=== PATIENT | female | born 1985 | race Caucasian/White ===

== ENCOUNTER 2017-01-13 13:32 | Emergency (ER) | payer MEDICAID ==
[2017-01-13] MEDS ORDERED: LORazepam 1 MG Tab PO ONE (14:20)
--- NOTE | 2017-01-13 14:38 | EDM.PDOCBH ---
ED HPI GENERAL MEDICAL PROBLEM - General Chief Complaint: Behavioral/Psych Stated Complaint: ANXIETY ISSUES Time Seen by Provider: 01/13/17 13:37 Source of Information: Reports: Patient History Limitations: Reports: No Limitations - History of Present Illness INITIAL COMMENTS - FREE TEXT/NARRATIVE: HISTORY AND PHYSICAL: History of present illness: Patient is a 31-year-old female who presents to the emergency room today with complaints of suicidal ideations. Has a past medical history of self-mutilation and depression. States she has been on Prozac and BuSpar for the past year to treat her depression. She currently sees at [facility]. Reports that her significant other recently broke up with her and she has had increased sadness, depression and thoughts of self-harm. She started cutting her hips with a razor blade last 01/10/2017. She states "I need to get my shit together have little boys at home that need me". She states if she does not receive help she plans to take all of her sleeping pills in an attempt to harm herself. Patient reports that she has had attempts to harm herself in the past, with self -mutilation. But she never was hospitalized or seen by a medical professional. She denies any visual or auditory hallucinations. She denies any drug or alcohol abuse. Review of systems: As per history of present illness and below otherwise all systems reviewed and negative. Past medical history: As per history of present illness and as reviewed below otherwise noncontributory. Surgical history: As per history of present illness and as reviewed below otherwise noncontributory. Social history: No reported history of drug or alcohol abuse. Family history: As per history of present illness and as reviewed below otherwise noncontributory. Physical exam: Gen.: Well-developed and well-nourished 31-year-old female. Appears nontoxic and in no acute distress. Is tearful during the interview. HEENT: Atraumatic, normocephalic, pupils reactive, negative for conjunctival pallor or scleral icterus, mucous membranes moist, throat clear, neck supple, nontender, trachea midline. Lungs: Clear to auscultation, breath sounds equal bilaterally, chest nontender. Previous easy and even. Heart: S1S2, regular, negative for clicks, rubs, or JVD. Abdomen: Soft, nondistended, nontender. Negative for masses or hepatosplenomegaly. Negative for costovertebral tenderness. Pelvis: Stable nontender. Genitourinary: Deferred. Rectal: Deferred. Skin: Superficial lacerations to the anterior/lateral hip bones bilaterally. Extremities: Atraumatic, has full range of motion, moves all extremities per self negative for cords or calf pain. Neurovascular unremarkable. Gait is steady and walks without difficulty. Neuro: Awake, alert, oriented. Cranial nerves II through XII unremarkable. Cerebellum unremarkable. Motor and sensory unremarkable throughout. Exam nonfocal. With the patient's complaint of wanting to harm herself I did tell her that she will need to go to [place] for a psych evaluation. Patient voices understanding and states that she is aware of needing to be transferred for further medical treatment. She states that she does have 3 boys at home which she is able to have a family member watch. Patient does appear anxious and is tearful during our interview. Will give patient 1 mg of Ativan to help alleviate some of her anxiety. A 72 hour hold/committal was filled out by me. Pedraza- Dr. Mccabe, mental health provider at [facility] in [place], consulted on this case. He has agreed to accept this patient as inpatient for mental health hold. Patient will be transferred via ground EMS. This case has also been reviewed with Dr. Harrison , emergency department physician. This will be in ED to ED transfer and then admitted to mental health. Patient is aware of transfer and is agreeable. The 72 hour hold has been filled out. He shouldn't is requesting "something from a headache", Tylenol has been given. Prior to transfer, the patient is alert and oriented, vital signs are stable, no current complaints. Diagnostics: CBC, CMPUA, urine drug screen, urine , TSH, salicylate, acetaminophen, Therapeutics: Ativan 1 mg by mouth, 650 Tylenol by mouth Impression: Suicidal ideations Plan: Wound transferred to [place]. Dr. Chaudhry has accepted to keep this patient as inpatient. The 72 hour emergency hold has been filled out. Definitive disposition and diagnosis as appropriate pending reevaluation and review of above. Headache Pain Score (Numeric/FACES): 10 - Related Data Allergies Allergy/AdvReac Type Severity Reaction Status Date / Time amoxicillin Allergy Hives Verified 01/13/17 14:04 Home Meds: Home Meds FLUoxetine [PROzac] 20 mg PO DAILY 01/13/17 [History] busPIRone HCl [Buspirone HCl] 60 mg PO BID 01/13/17 [History] Past Medical History HEENT History: Reports: None Cardiovascular History: Reports: None Respiratory History: Reports: None Gastrointestinal History: Reports: None Genitourinary History: Reports: None [employer] History: Reports: Musculoskeletal History: Reports: None Neurological History: Reports: None Psychiatric History: Reports: Anxiety, Depression Endocrine/Metabolic History: Reports: None Hematologic History: Reports: None Immunologic History: Reports: None Oncologic (Cancer) History: Reports: None Dermatologic History: Reports: None - Past Surgical History Head Surgeries/Procedures: Reports: None HEENT Surgical History: Reports: Tonsillectomy Cardiovascular Surgical History: Reports: None Respiratory Surgical History: Reports: None GI Surgical History: Reports: None Female Surgical History: Reports: None Endocrine Surgical History: Reports: None Neurological Surgical History: Reports: None Musculoskeletal Surgical History: Reports: None Oncologic Surgical History: Reports: None Dermatological Surgical History: Reports: None Social & Family History - Family History Family Medical History: Noncontributory - Tobacco Use Smoking Status *Q: Never Smoker - Caffeine Use Caffeine Use: Reports: Coffee - Recreational Drug Use Recreational Drug Use: No ED ROS GENERAL - Review of Systems Review Of Systems: ROS reveals no pertinent complaints other than HPI. ED EXAM, BEHAVIORAL HEALTH - Physical Exam Exam: See Below (See dictation) COURSE, BEHAVIORAL HEALTH COMP - Course Vital Signs: Last Vital Signs Temp 98.5 F 01/13/17 14:05 Pulse 81 01/13/17 15:04 Resp 18 01/13/17 15:04 BP 175/104 H 01/13/17 15:04 Pulse Ox 98 01/13/17 15:04 Orders, Labs, Meds: Laboratory Tests 01/13/17 01/13/17 01/13/17 Range/Units 14:28 14:28 14:58 WBC 8.22 (4.0-11.0) K/uL RBC 5.17 (4.30-5.90) M/uL Hgb 14.9 (12.0-16.0) g/dL Hct 43.5 (36.0-46.0) % MCV 84.1 (80.0-98.0) fL MCH 28.8 (27.0-32.0) pg MCHC 34.3 (31.0-37.0) g/dL RDW Std Deviation 37.9 (28.0-62.0) fl RDW Coeff of Neo 13 (11.0-15.0) % Plt Count 328 (150-400) K/uL MPV 10.00 (7.40-12.00) fL Neut % (Auto) 74.8 (48.0-80.0) % Lymph % (Auto) 20.1 (16.0-40.0) % [place] % (Auto) 4.9 (0.0-15.0) % Eos % (Auto) 0.0 (0.0-7.0) % Baso % (Auto) 0.2 (0.0-1.5) % Neut # (Auto) 6.2 H (1.4-5.7) K/uL Lymph # (Auto) 1.7 (0.6-2.4) K/uL [place] # (Auto) 0.4 (0.0-0.8) K/uL Eos # (Auto) 0.0 (0.0-0.7) K/uL Baso # (Auto) 0.0 (0.0-0.1) K/uL Nucleated RBC % 0.0 /100WBC Nucleated RBCs # 0 K/uL Sodium 141 (136-146) mmol/L Potassium 3.1 L (3.5-5.1) mmol/L Chloride 106 (98-110) mmol/L Carbon Dioxide 24 (21-31) mmol/L BUN 15 (6.0-23.0) mg/dL Creatinine 0.9 (0.6-1.5) mg/dL Est Cr Clr Drug Dosing 79.64 mL/min Estimated GFR (MDRD) > 60.0 ml/min Glucose 104 (60-110) mg/dL Calcium 9.2 (8.8-10.8) mg/dL Total Bilirubin 2.4 H (0.1-1.5) mg/dL AST 14 (5-40) IU/L ALT 16 (8-54) IU/L Alkaline Phosphatase 81 (40-150) Total Protein 8.1 H (6.0-8.0) g/dL Albumin 4.8 (3.5-5.0) g/dL Globulin 3.3 (2.0-3.5) g/dL Albumin/Globulin Ratio 1.5 TSH 3rd Generation 1.17 (0.47-5.0) uIU/mL Urine Color Urine Appearance Urine pH (5.0-8.0) Ur Specific [place] (1.001-1.035) Urine Protein (NEGATIVE) mg/dL Urine Glucose (UA) (NEGATIVE) mg/dL Urine Ketones (NEGATIVE) mg/dL Urine Occult Blood (NEGATIVE) Urine Nitrite (NEGATIVE) Urine Bilirubin (NEGATIVE) Urine Ictotest Urine Urobilinogen (<2.0) EU/dL Ur Leukocyte Esterase (NEGATIVE) Urine RBC (0-2/HPF) Urine WBC (0-5/HPF) Ur Epithelial Cells (NONE-FEW) Urine Bacteria (NEGATIVE) Urine Mucus (NONE-MOD) Urine HCG, Qual (NEGATIVE) Salicylates < 5.0 (0-20) mg/dL Urine Opiates Screen NEGATIVE (NEGATIVE) Ur Oxycodone Screen NEGATIVE (NEGATIVE) Urine Methadone Screen NEGATIVE (NEGATIVE) Acetaminophen < 3.0 ug/mL Ur Barbiturates Screen NEGATIVE (NEGATIVE) Ur Phencyclidine Scrn NEGATIVE (NEGATIVE) Ur Amphetamine Screen NEGATIVE (NEGATIVE) U Methamphetamines Scrn NEGATIVE (NEGATIVE) U Benzodiazepines Scrn NEGATIVE (NEGATIVE) U Cocaine Metab Screen NEGATIVE (NEGATIVE) U Marijuana (THC) Screen NEGATIVE (NEGATIVE) Ethyl Alcohol < 10.0 mg/dL 01/13/17 01/13/17 Range/Units 14:58 14:58 WBC (4.0-11.0) K/uL RBC (4.30-5.90) M/uL Hgb (12.0-16.0) g/dL Hct (36.0-46.0) % MCV (80.0-98.0) fL MCH (27.0-32.0) pg MCHC (31.0-37.0) g/dL RDW Std Deviation (28.0-62.0) fl RDW Coeff of Neo (11.0-15.0) % Plt Count (150-400) K/uL MPV (7.40-12.00) fL Neut % (Auto) (48.0-80.0) % Lymph % (Auto) (16.0-40.0) % [place] % (Auto) (0.0-15.0) % Eos % (Auto) (0.0-7.0) % Baso % (Auto) (0.0-1.5) % Neut # (Auto) (1.4-5.7) K/uL Lymph # (Auto) (0.6-2.4) K/uL [place] # (Auto) (0.0-0.8) K/uL Eos # (Auto) (0.0-0.7) K/uL Baso # (Auto) (0.0-0.1) K/uL Nucleated RBC % /100WBC Nucleated RBCs # K/uL Sodium (136-146) mmol/L Potassium (3.5-5.1) mmol/L Chloride (98-110) mmol/L Carbon Dioxide (21-31) mmol/L BUN (6.0-23.0) mg/dL Creatinine (0.6-1.5) mg/dL Est Cr Clr Drug Dosing mL/min Estimated GFR (MDRD) ml/min Glucose (60-110) mg/dL Calcium (8.8-10.8) mg/dL Total Bilirubin (0.1-1.5) mg/dL AST (5-40) IU/L ALT (8-54) IU/L Alkaline Phosphatase (40-150) Total Protein (6.0-8.0) g/dL Albumin (3.5-5.0) g/dL Globulin (2.0-3.5) g/dL Albumin/Globulin Ratio TSH 3rd Generation (0.47-5.0) uIU/mL Urine Color YELLOW Urine Appearance CLOUDY Urine pH 6.0 (5.0-8.0) Ur Specific [place] 1.020 (1.001-1.035) Urine Protein TRACE (NEGATIVE) mg/dL Urine Glucose (UA) NEGATIVE (NEGATIVE) mg/dL Urine Ketones 40 H (NEGATIVE) mg/dL Urine Occult Blood LARGE H (NEGATIVE) Urine Nitrite NEGATIVE (NEGATIVE) Urine Bilirubin SMALL H (NEGATIVE) Urine Ictotest NEGATIVE Urine Urobilinogen 0.2 (<2.0) EU/dL Ur Leukocyte Esterase NEGATIVE (NEGATIVE) Urine RBC 0-1 (0-2/HPF) Urine WBC 1-2 (0-5/HPF) Ur Epithelial Cells MODERATE (NONE-FEW) Urine Bacteria FEW (NEGATIVE) Urine Mucus LIGHT (NONE-MOD) Urine HCG, Qual NEGATIVE (NEGATIVE) Salicylates (0-20) mg/dL Urine Opiates Screen (NEGATIVE) Ur Oxycodone Screen (NEGATIVE) Urine Methadone Screen (NEGATIVE) Acetaminophen ug/mL Ur Barbiturates Screen (NEGATIVE) Ur Phencyclidine Scrn (NEGATIVE) Ur Amphetamine Screen (NEGATIVE) U Methamphetamines Scrn (NEGATIVE) U Benzodiazepines Scrn (NEGATIVE) U Cocaine Metab Screen (NEGATIVE) U Marijuana (THC) Screen (NEGATIVE) Ethyl Alcohol mg/dL Medications Discontinued Medications Generic Name Dose Route Start Last Admin Trade Name Freq PRN Reason Stop Dose Admin Lorazepam 1 mg 01/13/17 14:20 01/13/17 14:27 Ativan PO 01/13/17 14:21 1 mg ONETIME ONE Administration Departure - Departure Time of Disposition: 16:12 Disposition: DC/Tfer to Other 70 Clinical Impression: Suicidal ideation, Self-mutilation - Discharge Information Referrals: PCP,None [Primary Care Provider] - Forms: ED Department Discharge
[2017-01-13 15:23] LABS: CHLORIDE,CL 106 mmol/L (98-110); SODIUM,NA 141 mmol/L (136-146)
[2017-01-13 15:50] LABS: ACETAMINOPHEN < 3.0 ug/mL
[2017-01-13] MEDS ORDERED: Acetaminophen 325 MG Tab PO ONE (16:29)
== END 2017-01-13 16:40 | disposition other institution (70) ==
LOC: MW.ED 13:32
DX: S71.012A Laceration without foreign body, left hip, initial encounter (principal); S71.011A Laceration without foreign body, right hip, initial encounter; Z88.1 Allergy status to other antibiotic agents; Z79.899 Other long term (current) drug therapy; X78.8XXA Intentional self-harm by other sharp object, initial encounter
CPT/HCPCS: 36415; 80053; 80305; 81001; 81025; 84443; 85025; 99285; A9270; G0480; 99283

== ENCOUNTER 2017-02-04 12:51 | Emergency (ER) | payer MEDICAID ==
[2017-02-04 14:12] LABS: CHLORIDE,CL 107 mmol/L (98-110); SODIUM,NA 141 mmol/L (136-146)
--- NOTE | 2017-02-04 14:36 | EDM.PDOC ---
ED HPI GENERAL MEDICAL PROBLEM - General Chief Complaint: [employer] Problem Stated Complaint: PT BEEN BLEEDING FOR 2WKS Time Seen by Provider: 02/04/17 14:31 - History of Present Illness INITIAL COMMENTS - FREE TEXT/NARRATIVE: HISTORY AND PHYSICAL: History of present illness: Patient's 31-year-old white female presents with a concern of vaginal bleeding over the last several weeks she denies any significant chance of she' s had some mild cramping with this this is unusual for her. She's had no dizziness shortness of breath or other complaints. Review of systems: As per history of present illness and below otherwise all systems reviewed and negative. Past medical history: As per history of present illness and as reviewed below otherwise noncontributory. Surgical history: As per history of present illness and as reviewed below otherwise noncontributory. Social history: No reported history of drug or alcohol abuse. Family history: As per history of present illness and as reviewed below otherwise noncontributory. Physical exam: HEENT: Atraumatic, normocephalic, pupils reactive, negative for conjunctival pallor or scleral icterus, mucous membranes moist, throat clear, neck supple, nontender, trachea midline. Lungs: Clear to auscultation, breath sounds equal bilaterally, chest nontender. Heart: S1S2, regular, negative for clicks, rubs, or JVD. Abdomen: Soft, nondistended, nontender. Negative for masses or hepatosplenomegaly. Negative for costovertebral tenderness. Pelvis: Stable nontender. Genitourinary: Deferred. Rectal: Deferred. Extremities: Atraumatic, negative for cords or calf pain. Neurovascular unremarkable. Neuro: Awake, alert, oriented. Cranial nerves II through XII unremarkable. Cerebellum unremarkable. Motor and sensory unremarkable throughout. Exam nonfocal. Diagnostics: CBC PT/INR hCG Therapeutics: None Impression: #1 menometrorrhagia Definitive disposition and diagnosis as appropriate pending reevaluation and review of above. lower abdomen Pain Score (Numeric/FACES): 6 - Related Data Allergies Allergy/AdvReac Type Severity Reaction Status Date / Time amoxicillin Allergy Hives Verified 01/13/17 14:04 Sulfa (Sulfonamide Allergy Hives Verified 02/04/17 13:25 Antibiotics) Home Meds: Home Meds FLUoxetine [PROzac] 20 mg PO DAILY 01/13/17 [History] busPIRone HCl [Buspirone HCl] 60 mg PO BID 01/13/17 [History] QUEtiapine [SEROquel] 100 mg PO DAILY 02/04/17 [History] Past Medical History HEENT History: Reports: None Cardiovascular History: Reports: None Respiratory History: Reports: None Gastrointestinal History: Reports: None Genitourinary History: Reports: None [employer] History: Reports: Musculoskeletal History: Reports: None Neurological History: Reports: None Psychiatric History: Reports: Anxiety, Depression Endocrine/Metabolic History: Reports: None Hematologic History: Reports: None Immunologic History: Reports: None Oncologic (Cancer) History: Reports: None Dermatologic History: Reports: None - Past Surgical History Head Surgeries/Procedures: Reports: None HEENT Surgical History: Reports: Tonsillectomy Cardiovascular Surgical History: Reports: None Respiratory Surgical History: Reports: None GI Surgical History: Reports: None Female Surgical History: Reports: None Endocrine Surgical History: Reports: None Neurological Surgical History: Reports: None Musculoskeletal Surgical History: Reports: None Oncologic Surgical History: Reports: None Dermatological Surgical History: Reports: None Social & Family History - Family History Family Medical History: Noncontributory Other Dermatologic Family History: lupus - Tobacco Use Smoking Status *Q: Never Smoker Second Hand Smoke Exposure: No - Caffeine Use Caffeine Use: Reports: Soda - Recreational Drug Use Recreational Drug Use: No ED ROS GENERAL - Review of Systems Review Of Systems: ROS reveals no pertinent complaints other than HPI. ED EXAM, GENERAL - Physical Exam Exam: See Below (See dictation) Course - Vital Signs Last Recorded V/S: Last Vital Signs Temp 36.7 C 02/04/17 13:21 Pulse 76 02/04/17 13:21 Resp 18 02/04/17 13:21 BP 156/85 H 02/04/17 13:21 Pulse Ox 99 02/04/17 13:21 - Orders/Labs/Meds Orders: Active Orders 24 hr Category Date Time Status UA W/MICROSCOPIC [URIN] Stat Lab 02/04/17 13:55 Received Labs: Laboratory Tests 02/04/17 02/04/17 02/04/17 Range/Units 13:41 13:41 13:41 WBC 7.65 (4.0-11.0) K/uL RBC 4.50 (4.30-5.90) M/uL Hgb 12.9 (12.0-16.0) g/dL Hct 38.2 (36.0-46.0) % MCV 84.9 (80.0-98.0) fL MCH 28.7 (27.0-32.0) pg MCHC 33.8 (31.0-37.0) g/dL RDW Std Deviation 38.0 (28.0-62.0) fl RDW Coeff of Neo 13 (11.0-15.0) % Plt Count 263 (150-400) K/uL MPV 9.10 (7.40-12.00) fL Neut % (Auto) 70.2 (48.0-80.0) % Lymph % (Auto) 24.3 (16.0-40.0) % [place]a % (Auto) 4.4 (0.0-15.0) % Eos % (Auto) 0.8 (0.0-7.0) % Baso % (Auto) 0.3 (0.0-1.5) % Neut # (Auto) 5.4 (1.4-5.7) K/uL Lymph # (Auto) 1.9 (0.6-2.4) K/uL Lea # (Auto) 0.3 (0.0-0.8) K/uL Eos # (Auto) 0.1 (0.0-0.7) K/uL Baso # (Auto) 0.0 (0.0-0.1) K/uL Nucleated RBC % 0.0 /100WBC Nucleated RBCs # 0 K/uL Sodium 141 (136-146) mmol/L Potassium 3.8 (3.5-5.1) mmol/L Chloride 107 (98-110) mmol/L Carbon Dioxide 26 (21-31) mmol/L BUN 11 (6.0-23.0) mg/dL Creatinine 0.9 (0.6-1.5) mg/dL Est Cr Clr Drug Dosing 79.64 mL/min Estimated GFR (MDRD) > 60.0 ml/min Glucose 88 (60-110) mg/dL Calcium 9.2 (8.8-10.8) mg/dL Total Bilirubin 1.1 (0.1-1.5) mg/dL AST 14 (5-40) IU/L ALT 15 (8-54) IU/L Alkaline Phosphatase 68 (40-150) Total Protein 7.1 (6.0-8.0) g/dL Albumin 4.3 (3.5-5.0) g/dL Globulin 2.8 (2.0-3.5) g/dL Albumin/Globulin Ratio 1.5 (1.3-2.8) Urine HCG, Qual (NEGATIVE) Blood Type O POSITIVE 02/04/17 Range/Units 13:55 WBC (4.0-11.0) K/uL RBC (4.30-5.90) M/uL Hgb (12.0-16.0) g/dL Hct (36.0-46.0) % MCV (80.0-98.0) fL MCH (27.0-32.0) pg MCHC (31.0-37.0) g/dL RDW Std Deviation (28.0-62.0) fl RDW Coeff of Neo (11.0-15.0) % Plt Count (150-400) K/uL MPV (7.40-12.00) fL Neut % (Auto) (48.0-80.0) % Lymph % (Auto) (16.0-40.0) % Le[place] % (Auto) (0.0-15.0) % Eos % (Auto) (0.0-7.0) % Baso % (Auto) (0.0-1.5) % Neut # (Auto) (1.4-5.7) K/uL Lymph # (Auto) (0.6-2.4) K/uL Lea # (Auto) (0.0-0.8) K/uL Eos # (Auto) (0.0-0.7) K/uL Baso # (Auto) (0.0-0.1) K/uL Nucleated RBC % /100WBC Nucleated RBCs # K/uL Sodium (136-146) mmol/L Potassium (3.5-5.1) mmol/L Chloride (98-110) mmol/L Carbon Dioxide (21-31) mmol/L BUN (6.0-23.0) mg/dL Creatinine (0.6-1.5) mg/dL Est Cr Clr Drug Dosing mL/min Estimated GFR (MDRD) ml/min Glucose (60-110) mg/dL Calcium (8.8-10.8) mg/dL Total Bilirubin (0.1-1.5) mg/dL AST (5-40) IU/L ALT (8-54) IU/L Alkaline Phosphatase (40-150) Total Protein (6.0-8.0) g/dL Albumin (3.5-5.0) g/dL Globulin (2.0-3.5) g/dL Albumin/Globulin Ratio (1.3-2.8) Urine HCG, Qual POSITIVE (NEGATIVE) Blood Type Departure - Departure Time of Disposition: 14:36 Disposition: Home, Self-Care 01 Condition: Good Clinical Impression: Menometrorrhagia - Discharge Information Referrals: Baldev Cheatham MD [Primary Care Provider] - Additional Instructions: The following information is given to patients seen in the emergency department who are being discharged to home. This information is to outline your options for follow-up care. We provide all patients seen in our emergency department with a follow-up referral. The need for follow-up, as well as the timing and circumstances, are variable depending upon the specifics of your emergency department visit. If you don't have a primary care physician on staff, we will provide you with a referral. We always advise you to contact your personal physician following an emergency department visit to inform them of the circumstance of the visit and for follow-up with them and/or the need for any referrals to a consulting specialist. The emergency department will also refer you to a specialist when appropriate. This referral assures that you have the opportunity for followup care with a specialist. All of these measure are taken in an effort to provide you with optimal care, which includes your followup. Under all circumstances we always encourage you to contact your private physician who remains a resource for coordinating your care. When calling for followup care, please make the office aware that this follow-up is from your recent emergency room visit. If for any reason you are refused follow-up, please contact the [facility] emergency department at and asked to speak to the emergency department charge nurse. [facility] [address] [place] [id number] Follow-up private medical doctor and [employer] the above as discussed call to schedule appointment return as needed as discussed
--- NOTE | 2017-02-05 10:29 | US ---
EXAM DATE: 02/04/17 PATIENT'S AGE: 31 Patient: SARAHI ESTEVEZ Facility: [place], [place] Site . Site : 1985 Study: US OB Pelvis [id number] 3:55:08 PM Ordering Physician: Dorothy Espinoza Final Report: INDICATION: Abdominal pain. Vaginal bleeding. Positive test. TECHNIQUE: Ultrasound pelvis transvaginal for better assessment or to better visualize the endometrium. Real-time sonographic images with spectral and color Doppler imaging of the ovaries were obtained. COMPARISON: None. FINDINGS: Uterus is 8.5 x 4.7 x 4.7 cm. There is a rounded slightly heterogeneous hyperechoic focus with apparent peripheral flow in the left lower uterine segment. This measures up to 2.7 cm. The endometrial stripe is 11 mm. No evidence of endometrial mass or fluid. No evidence of normal living intrauterine . Right ovary is 3.7 x 3.9 x 2.7 cm and is within normal limits. Normal-appearing color Doppler flow in the right ovary. The left ovary is not discretely identified. Left adnexal region as imaged is unremarkable. There is a small amount of pelvic free fluid. IMPRESSION: No evidence of normal living intrauterine . Rounded slightly heterogeneous hyperechoic focus with apparent peripheral flow in the left lower uterine segment, of uncertain significance. This may be of no significance. However, given history of positive test, an intramural or interstitial type ectopic would be difficult to entirely exclude. Continued attention to this on clinical, imaging and beta HCG followup recommended as necessary. Nonvisualization of the left ovary. Small amount of pelvic free fluid. Dictated by Jermaine Montero MD @ 02/04/2017 5:02:00 PM Dictated by: Jermaine Montero MD @ 02/04/2017 17:02:47 (Electronic Signature) Report Signed by Proxy. DENICE
== END 2017-02-04 17:38 | disposition home or self-care (01) ==
LOC: MW.ED 12:51
DX: O20.8 Other hemorrhage in early pregnancy (principal); Z88.1 Allergy status to other antibiotic agents; Z88.2 Allergy status to sulfonamides; Z79.899 Other long term (current) drug therapy
CPT/HCPCS: 36415; 76801; 76801-26; 80053; 81001; 81025; 84702; 85025; 85610; 86900; 86901; 99283; 99284-25

== ENCOUNTER 2017-02-10 00:29 | Observation (INO) | payer MEDICAID ==
[2017-02-10] MEDS ORDERED: Sodium Chloride 0.9% 1,000 ML IV ONE (00:34)
--- NOTE | 2017-02-10 00:50 | EDM.PDOC ---
ED HPI GENERAL MEDICAL PROBLEM - General Chief Complaint: TARGET DEVELOPER Problem Stated Complaint: THINKS OVARY RUPTURED Time Seen by Provider: 02/10/17 00:29 - History of Present Illness INITIAL COMMENTS - FREE TEXT/NARRATIVE: HISTORY AND PHYSICAL: History of present illness: Patient 31-year-old female who was seen on 1226 with a positive test and mild abdominal cramping and vaginal bleeding was discharged home for repeat quantitative beta and follow-up her initial quantitative beta was 520 48 hour repeat was 576 that's 04 February and 06 February respectively she presents now with acute right-sided pain vaginal bleeding. She denies fever chills nausea vomiting or other complaints Review of systems: As per history of present illness and below otherwise all systems reviewed and negative. Past medical history: As per history of present illness and as reviewed below otherwise noncontributory. Surgical history: As per history of present illness and as reviewed below otherwise noncontributory. Social history: No reported history of drug or alcohol abuse. Family history: As per history of present illness and as reviewed below otherwise noncontributory. Physical exam: HEENT: Atraumatic, normocephalic, pupils reactive, negative for conjunctival pallor or scleral icterus, mucous membranes moist, throat clear, neck supple, nontender, trachea midline. Lungs: Clear to auscultation, breath sounds equal bilaterally, chest nontender. Heart: S1S2, regular, negative for clicks, rubs, or JVD. Abdomen: Tender with guarding greatest in the right lower quadrant. Negative for masses or hepatosplenomegaly. Negative for costovertebral tenderness. Pelvis: Stable nontender. Genitourinary: Deferred. Rectal: Deferred. Extremities: Atraumatic, negative for cords or calf pain. Neurovascular unremarkable. Neuro: Awake, alert, oriented. Cranial nerves II through XII unremarkable. Cerebellum unremarkable. Motor and sensory unremarkable throughout. Exam nonfocal. Diagnostics: CBC CMP type and screen pelvic ultrasound UA urine drug screen Therapeutics: Normal saline 1 L bolus Impression: #1 acute right-sided abdominal pain rule out ectopic ASSOCIATE QUALITY ENGINEER on-call Dr Brenner notified of above findings request notification after ultrasound and lab work back. Definitive disposition and diagnosis as appropriate pending reevaluation and review of above. abdomen Pain Score (Numeric/FACES): 10 - Related Data Allergies Allergy/AdvReac Type Severity Reaction Status Date / Time amoxicillin Allergy Hives Verified 02/10/17 00:42 Sulfa (Sulfonamide Allergy Hives Verified 02/10/17 00:42 Antibiotics) Home Meds: Home Meds FLUoxetine [PROzac] 20 mg PO DAILY 01/13/17 [History] busPIRone HCl [Buspirone HCl] 60 mg PO BID 01/13/17 [History] QUEtiapine [SEROquel] 100 mg PO DAILY 02/04/17 [History] Past Medical History HEENT History: Reports: None Cardiovascular History: Reports: None Respiratory History: Reports: None Gastrointestinal History: Reports: None Genitourinary History: Reports: None TARGET DEVELOPER History: Reports: Musculoskeletal History: Reports: None Neurological History: Reports: None Psychiatric History: Reports: Anxiety, Depression Endocrine/Metabolic History: Reports: None Hematologic History: Reports: None Immunologic History: Reports: None Oncologic (Cancer) History: Reports: None Dermatologic History: Reports: None - Past Surgical History Head Surgeries/Procedures: Reports: None HEENT Surgical History: Reports: Tonsillectomy Cardiovascular Surgical History: Reports: None Respiratory Surgical History: Reports: None GI Surgical History: Reports: None Female Surgical History: Reports: None Endocrine Surgical History: Reports: None Neurological Surgical History: Reports: None Musculoskeletal Surgical History: Reports: None Oncologic Surgical History: Reports: None Dermatological Surgical History: Reports: None Social & Family History - Family History Family Medical History: Noncontributory Other Dermatologic Family History: lupus - Tobacco Use Smoking Status *Q: Never Smoker Second Hand Smoke Exposure: No - Caffeine Use Caffeine Use: Reports: Soda - Recreational Drug Use Recreational Drug Use: No ED ROS GENERAL - Review of Systems Review Of Systems: ROS reveals no pertinent complaints other than HPI. ED EXAM, GENERAL - Physical Exam Exam: See Below Course - Vital Signs Text/Narrative:: Ultrasound results and labs reviewed with Dr. Brenner who requests admission for observation patient interval examination has improved slightly there certainly no worsening I discussed admission with patient for close observation and reevaluation by TARGET DEVELOPER patient remains afebrile and will be admitted as 22 arousals with diagnosis of acute right lower quadrant pain etiology to be determined rule out ectopic Last Recorded V/S: Last Vital Signs Temp 36.3 C 02/10/17 00:29 Pulse 115 H 02/10/17 00:29 Resp 20 02/10/17 00:29 BP 178/114 H 02/10/17 00:29 Pulse Ox 100 02/10/17 00:29 - Orders/Labs/Meds Orders: Active Orders 24 hr Category Date Time Status Admission Status [Patient Status] [ADT] Stat ADT 02/10/17 02:23 Active OB 1st Tri Sgl 1st Gest [US] Stat Exams 02/10/17 00:41 Taken TYPE AND SCREEN [BBK] Stat Lab 02/10/17 01:32 Received UA W/MICROSCOPIC [URIN] Stat Lab 02/10/17 02:08 Results Labs: Laboratory Tests 02/10/17 02/10/17 02/10/17 Range/Units 00:40 00:40 00:47 WBC 17.80 H (4.0-11.0) K/uL RBC 4.34 (4.30-5.90) M/uL Hgb 12.7 (12.0-16.0) g/dL Hct 36.6 (36.0-46.0) % MCV 84.3 (80.0-98.0) fL MCH 29.3 (27.0-32.0) pg MCHC 34.7 (31.0-37.0) g/dL RDW Std Deviation 38.6 (28.0-62.0) fl RDW Coeff of Neo 13 (11.0-15.0) % Plt Count 302 (150-400) K/uL MPV 9.40 (7.40-12.00) fL Neut % (Auto) 77.0 (48.0-80.0) % Lymph % (Auto) 18.3 (16.0-40.0) % [place] % (Auto) 4.0 (0.0-15.0) % Eos % (Auto) 0.6 (0.0-7.0) % Baso % (Auto) 0.1 (0.0-1.5) % Neut # (Auto) 13.7 H (1.4-5.7) K/uL Lymph # (Auto) 3.3 H (0.6-2.4) K/uL [place] # (Auto) 0.7 (0.0-0.8) K/uL Eos # (Auto) 0.1 (0.0-0.7) K/uL Baso # (Auto) 0.0 (0.0-0.1) K/uL Nucleated RBC % 0.0 /100WBC Nucleated RBCs # 0 K/uL Sodium 139 (136-146) mmol/L Potassium 3.4 L (3.5-5.1) mmol/L Chloride 106 (98-110) mmol/L Carbon Dioxide 23 (21-31) mmol/L BUN 11 (6.0-23.0) mg/dL Creatinine 0.9 (0.6-1.5) mg/dL Est Cr Clr Drug Dosing 79.64 mL/min Estimated GFR (MDRD) > 60.0 ml/min Glucose 116 H (60-110) mg/dL Calcium 8.6 L (8.8-10.8) mg/dL Total Bilirubin 0.4 (0.1-1.5) mg/dL AST 13 (5-40) IU/L ALT 15 (8-54) IU/L Alkaline Phosphatase 64 (40-150) Total Protein 7.3 (6.0-8.0) g/dL Albumin 4.3 (3.5-5.0) g/dL Globulin 3.0 (2.0-3.5) g/dL Albumin/Globulin Ratio 1.4 (1.3-2.8) HCG, Quant 399.4 mIU/mL Urine Color Urine Appearance Urine pH (5.0-8.0) Ur Specific [place] (1.001-1.035) Urine Protein (NEGATIVE) mg/dL Urine Glucose (UA) (NEGATIVE) mg/dL Urine Ketones (NEGATIVE) mg/dL Urine Occult Blood (NEGATIVE) Urine Nitrite (NEGATIVE) Urine Bilirubin (NEGATIVE) Urine Urobilinogen (<2.0) EU/dL Ur Leukocyte Esterase (NEGATIVE) Urine Opiates Screen NEGATIVE (NEGATIVE) Ur Oxycodone Screen NEGATIVE (NEGATIVE) Urine Methadone Screen NEGATIVE (NEGATIVE) Ur Barbiturates Screen NEGATIVE (NEGATIVE) Ur Phencyclidine Scrn NEGATIVE (NEGATIVE) Ur Amphetamine Screen NEGATIVE (NEGATIVE) U Methamphetamines Scrn NEGATIVE (NEGATIVE) U Benzodiazepines Scrn NEGATIVE (NEGATIVE) U Cocaine Metab Screen NEGATIVE (NEGATIVE) U Marijuana (THC) Screen NEGATIVE (NEGATIVE) 02/10/17 Range/Units 02:08 WBC (4.0-11.0) K/uL RBC (4.30-5.90) M/uL Hgb (12.0-16.0) g/dL Hct (36.0-46.0) % MCV (80.0-98.0) fL MCH (27.0-32.0) pg MCHC (31.0-37.0) g/dL RDW Std Deviation (28.0-62.0) fl RDW Coeff of Neo (11.0-15.0) % Plt Count (150-400) K/uL MPV (7.40-12.00) fL Neut % (Auto) (48.0-80.0) % Lymph % (Auto) (16.0-40.0) % [place] % (Auto) (0.0-15.0) % Eos % (Auto) (0.0-7.0) % Baso % (Auto) (0.0-1.5) % Neut # (Auto) (1.4-5.7) K/uL Lymph # (Auto) (0.6-2.4) K/uL [place] # (Auto) (0.0-0.8) K/uL Eos # (Auto) (0.0-0.7) K/uL Baso # (Auto) (0.0-0.1) K/uL Nucleated RBC % /100WBC Nucleated RBCs # K/uL Sodium (136-146) mmol/L Potassium (3.5-5.1) mmol/L Chloride (98-110) mmol/L Carbon Dioxide (21-31) mmol/L BUN (6.0-23.0) mg/dL Creatinine (0.6-1.5) mg/dL Est Cr Clr Drug Dosing mL/min Estimated GFR (MDRD) ml/min Glucose (60-110) mg/dL Calcium (8.8-10.8) mg/dL Total Bilirubin (0.1-1.5) mg/dL AST (5-40) IU/L ALT (8-54) IU/L Alkaline Phosphatase (40-150) Total Protein (6.0-8.0) g/dL Albumin (3.5-5.0) g/dL Globulin (2.0-3.5) g/dL Albumin/Globulin Ratio (1.3-2.8) HCG, Quant mIU/mL Urine Color RED Urine Appearance SLT CLOUDY Urine pH 6.0 (5.0-8.0) Ur Specific [place] 1.025 (1.001-1.035) Urine Protein 30 (NEGATIVE) mg/dL Urine Glucose (UA) NEGATIVE (NEGATIVE) mg/dL Urine Ketones NEGATIVE (NEGATIVE) mg/dL Urine Occult Blood LARGE H (NEGATIVE) Urine Nitrite NEGATIVE (NEGATIVE) Urine Bilirubin NEGATIVE (NEGATIVE) Urine Urobilinogen 0.2 (<2.0) EU/dL Ur Leukocyte Esterase NEGATIVE (NEGATIVE) Urine Opiates Screen (NEGATIVE) Ur Oxycodone Screen (NEGATIVE) Urine Methadone Screen (NEGATIVE) Ur Barbiturates Screen (NEGATIVE) Ur Phencyclidine Scrn (NEGATIVE) Ur Amphetamine Screen (NEGATIVE) U Methamphetamines Scrn (NEGATIVE) U Benzodiazepines Scrn (NEGATIVE) U Cocaine Metab Screen (NEGATIVE) U Marijuana (THC) Screen (NEGATIVE) Meds: Medications Discontinued Medications Generic Name Dose Route Start Last Admin Trade Name Freq PRN Reason Stop Dose Admin Sodium Chloride 1,000 mls @ 999 mls/hr 02/10/17 00:34 02/10/17 00:46 Normal Saline IV 02/10/17 01:34 999 mls/hr STAT ONE Administration Ondansetron HCl 4 mg 02/10/17 00:56 02/10/17 00:52 Zofran IVPUSH 02/10/17 00:57 4 mg ONETIME ONE Administration Departure - Departure Time of Disposition: 02:31 Disposition: Refer to Observation Condition: Good Clinical Impression: Abdominal pain - Discharge Information Referrals: PCP,None [Primary Care Provider] - Forms: ED Department Discharge - My Orders Last 24 Hours: My Active Orders 02/10/17 00:41 OB 1st Tri Sgl 1st Gest [US] Stat 02/10/17 01:32 TYPE AND SCREEN [BBK] Stat 02/10/17 02:08 UA W/MICROSCOPIC [URIN] Stat 02/10/17 02:23 Admission Status [Patient Status] [ADT] Stat - Assessment/Plan Last 24 Hours: My Active Orders 02/10/17 00:41 OB 1st Tri Sgl 1st Gest [US] Stat 02/10/17 01:32 TYPE AND SCREEN [BBK] Stat 02/10/17 02:08 UA W/MICROSCOPIC [URIN] Stat 02/10/17 02:23 Admission Status [Patient Status] [ADT] Stat
[2017-02-10] MEDS ORDERED: Ondansetron 4 MG/2 ML SDV IVPUSH ONE (00:56)
[2017-02-10 01:35] LABS: CHLORIDE,CL 106 mmol/L (98-110); SODIUM,NA 139 mmol/L (136-146)
[2017-02-10] MEDS ORDERED: Morphine 10 MG/ML Syringe IVPUSH PRN (03:05)
[2017-02-10] MEDS: Lactated Ringers 1,000 ML IV SCH ×4 (03:24→23:08)
[2017-02-10] MEDS: HYDROmorphone 2 MG/ML SDV IVPUSH PRN ×3 (03:42→20:03)
[2017-02-10] MEDS: Ondansetron 4 MG/2 ML SDV IVPUSH PRN ×3 (05:53→20:03)
--- NOTE | 2017-02-10 10:19 | PCM.PREANE ---
Preanesthetic Assessment - Procedure Proposed Procedure: laparoscopy possible salpingectomy - Anesthesia/Transfusion/Family Hx Anesthesia History: Prior Anesthesia Without Reaction Family History of Anesthesia Reaction: Yes Family History of Anesthesia Reaction, Other: States mother has trouble going under, no details available Transfusion History: No Prior Transfusion(s) - Review of Systems General: No Symptoms Pulmonary: No Symptoms Cardiovascular: No Symptoms Gastrointestinal: Abdominal Pain (r/t acute problem) Neurological: No Symptoms Other: Reports: None - Physical Assessment NPO Status Date: 02/09/17 NPO Status Time: 23:55 O2 Sat by Pulse Oximetry: 95 Respiratory Rate: 20 Vital Signs: Last Vital Signs Temp 36.1 C 02/10/17 08:00 Pulse 94 02/10/17 08:00 Resp 20 02/10/17 08:00 BP 122/74 02/10/17 08:00 Pulse Ox 95 02/10/17 08:00 Height: 1.63 m Weight: 86.228 kg ASA Class: 2E Mental Status: Alert & Oriented x3 (somewhat drowsy from pain medication) Dentition: Reports: Normal Dentition Thyro-Mental Finger Breadths: 3 Mouth Opening Finger Breadths: 3 ROM/Head Extension: Full Lungs: Clear to Auscultation, Normal Respiratory Effort Cardiovascular: Regular Rate, Regular Rhythm - Lab Values: Laboratory Last Values WBC 17.80 K/uL (4.0-11.0) H 02/10/17 00:40 RBC 4.34 M/uL (4.30-5.90) 02/10/17 00:40 Hgb 9.6 g/dL (12.0-16.0) L 02/10/17 08:15 Hct 27.9 % (36.0-46.0) L 02/10/17 08:15 MCV 84.3 fL (80.0-98.0) 02/10/17 00:40 MCH 29.3 pg (27.0-32.0) 02/10/17 00:40 MCHC 34.7 g/dL (31.0-37.0) 02/10/17 00:40 RDW Std Deviation 38.6 fl (28.0-62.0) 02/10/17 00:40 RDW Coeff of Neo 13 % (11.0-15.0) 02/10/17 00:40 Plt Count 302 K/uL (150-400) 02/10/17 00:40 MPV 9.40 fL (7.40-12.00) 02/10/17 00:40 Neut % (Auto) 77.0 % (48.0-80.0) 02/10/17 00:40 Lymph % (Auto) 18.3 % (16.0-40.0) 02/10/17 00:40 [place] % (Auto) 4.0 % (0.0-15.0) 02/10/17 00:40 Eos % (Auto) 0.6 % (0.0-7.0) 02/10/17 00:40 Baso % (Auto) 0.1 % (0.0-1.5) 02/10/17 00:40 Neut # (Auto) 13.7 K/uL (1.4-5.7) H 02/10/17 00:40 Lymph # (Auto) 3.3 K/uL (0.6-2.4) H 02/10/17 00:40 [place] # (Auto) 0.7 K/uL (0.0-0.8) 02/10/17 00:40 Eos # (Auto) 0.1 K/uL (0.0-0.7) 02/10/17 00:40 Baso # (Auto) 0.0 K/uL (0.0-0.1) 02/10/17 00:40 Nucleated RBC % 0.0 /100WBC 02/10/17 00:40 Nucleated RBCs # 0 K/uL 02/10/17 00:40 Sodium 139 mmol/L (136-146) 02/10/17 00:40 Potassium 3.4 mmol/L (3.5-5.1) L 02/10/17 00:40 Chloride 106 mmol/L (98-110) 02/10/17 00:40 Carbon Dioxide 23 mmol/L (21-31) 02/10/17 00:40 BUN 11 mg/dL (6.0-23.0) 02/10/17 00:40 Creatinine 0.9 mg/dL (0.6-1.5) 02/10/17 00:40 Est Cr Clr Drug Dosing 79.64 mL/min 02/10/17 00:40 Estimated GFR (MDRD) > 60.0 ml/min 02/10/17 00:40 Glucose 116 mg/dL (60-110) H 02/10/17 00:40 Calcium 8.6 mg/dL (8.8-10.8) L 02/10/17 00:40 Total Bilirubin 0.4 mg/dL (0.1-1.5) 02/10/17 00:40 AST 13 IU/L (5-40) 02/10/17 00:40 ALT 15 IU/L (8-54) 02/10/17 00:40 Alkaline Phosphatase 64 (40-150) 02/10/17 00:40 Total Protein 7.3 g/dL (6.0-8.0) 02/10/17 00:40 Albumin 4.3 g/dL (3.5-5.0) 02/10/17 00:40 Globulin 3.0 g/dL (2.0-3.5) 02/10/17 00:40 Albumin/Globulin Ratio 1.4 (1.3-2.8) 02/10/17 00:40 HCG, Quant 399.4 mIU/mL 02/10/17 00:40 Urine Color RED 02/10/17 02:08 Urine Appearance SLT CLOUDY 02/10/17 02:08 Urine pH 6.0 (5.0-8.0) 02/10/17 02:08 Ur Specific [place] 1.025 (1.001-1.035) 02/10/17 02:08 Urine Protein 30 mg/dL (NEGATIVE) 02/10/17 02:08 Urine Glucose (UA) NEGATIVE mg/dL (NEGATIVE) 02/10/17 02:08 Urine Ketones NEGATIVE mg/dL (NEGATIVE) 02/10/17 02:08 Urine Occult Blood LARGE (NEGATIVE) H 02/10/17 02:08 Urine Nitrite NEGATIVE (NEGATIVE) 02/10/17 02:08 Urine Bilirubin NEGATIVE (NEGATIVE) 02/10/17 02:08 Urine Urobilinogen 0.2 EU/dL (<2.0) 02/10/17 02:08 Ur Leukocyte Esterase NEGATIVE (NEGATIVE) 02/10/17 02:08 Urine RBC TOO NUMBEROUS TO CT (0-2/HPF) H 02/10/17 02:08 Urine WBC 0-5 (0-5/HPF) 02/10/17 02:08 Ur Epithelial Cells FEW (NONE-FEW) 02/10/17 02:08 Urine Bacteria FEW (NEGATIVE) 02/10/17 02:08 Urine Opiates Screen NEGATIVE (NEGATIVE) 02/10/17 00:47 Ur Oxycodone Screen NEGATIVE (NEGATIVE) 02/10/17 00:47 Urine Methadone Screen NEGATIVE (NEGATIVE) 02/10/17 00:47 Ur Barbiturates Screen NEGATIVE (NEGATIVE) 02/10/17 00:47 Ur Phencyclidine Scrn NEGATIVE (NEGATIVE) 02/10/17 00:47 Ur Amphetamine Screen NEGATIVE (NEGATIVE) 02/10/17 00:47 U Methamphetamines Scrn NEGATIVE (NEGATIVE) 02/10/17 00:47 U Benzodiazepines Scrn NEGATIVE (NEGATIVE) 02/10/17 00:47 U Cocaine Metab Screen NEGATIVE (NEGATIVE) 02/10/17 00:47 U Marijuana (THC) Screen NEGATIVE (NEGATIVE) 02/10/17 00:47 Blood Type O POSITIVE 02/10/17 01:32 Antibody Screen NEGATIVE 02/10/17 01:32 - Allergies Allergies/Adverse Reactions: Allergies Allergy/AdvReac Type Severity Reaction Status Date / Time amoxicillin Allergy Hives Verified 02/10/17 00:42 Sulfa (Sulfonamide Allergy Hives Verified 02/10/17 00:42 Antibiotics) - Acknowledgements Anesthesia Type Planned: General Anesthesia Pt an Appropriate Candidate for the Planned Anesthesia: Yes Alternatives and Risks of Anesthesia Discussed w Pt/Guardian: Yes Pt/Guardian Understands and Agrees with Anesthesia Plan: Yes PreAnesthesia Questionnaire - Past Health History Medical/Surgical History: Denies Medical/Surgical History HEENT History: Reports: None Cardiovascular History: Reports: None Respiratory History: Reports: None Gastrointestinal History: Reports: GERD (Occasional GERD treated with OTC zantac. 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 Neurologist at [facility] in [place] manages and pt reports being told they may be migraine induced. May have had one in past couple of weeks. No active medical treatment.) Psychiatric History: Reports: Anxiety, Depression, Suicidal Ideation (treated in ER in early January 2017), Other (See Below) Other Psychiatric History: PTSD Endocrine/Metabolic History: Reports: None Hematologic History: Reports: None Immunologic History: Reports: None Oncologic (Cancer) History: Reports: None Dermatologic History: Reports: None - Infectious Disease History Infectious Disease History: Reports: Chicken Pox - Past Surgical History Head Surgeries/Procedures: Reports: None HEENT Surgical History: Reports: Tonsillectomy Cardiovascular Surgical History: Reports: None Respiratory Surgical History: Reports: None GI Surgical History: Reports: None Female Surgical History: Reports: None Endocrine Surgical History: Reports: None Neurological Surgical History: Reports: None Musculoskeletal Surgical History: Reports: None Oncologic Surgical History: Reports: None Dermatological Surgical History: Reports: None - SUBSTANCE USE Smoking Status *Q: Never Smoker Second Hand Smoke Exposure: No Recreational Drug Use History: No - HOME MEDS Home Medications: Home Meds FLUoxetine [PROzac] 60 mg PO DAILY 01/13/17 [History] busPIRone HCl [Buspirone HCl] 60 mg PO TID 01/13/17 [History] QUEtiapine [SEROquel] 100 mg PO DAILY 02/04/17 [History] - CURRENT (IN HOUSE) MEDS Current Meds: Current Medications Hydromorphone HCl (Dilaudid) 2 mg IVPUSH Q4H PRN PRN Reason: Pain Last Admin: 02/10/17 07:33 Dose: 2 mg Lactated Ringer's (Ringers, Lactated) 1,000 mls @ 150 mls/hr IV ASDIRECTED HOME Last Admin: 02/10/17 03:24 Dose: 150 mls/hr Ondansetron HCl (Zofran) 4 mg IVPUSH Q4H PRN PRN Reason: nausea/vomitting Last Admin: 02/10/17 09:35 Dose: 4 mg Discontinued Medications Sodium Chloride (Normal Saline) 1,000 mls @ 999 mls/hr IV STAT ONE Stop: 02/10/17 01:34 Last Admin: 02/10/17 00:46 Dose: 999 mls/hr Morphine Sulfate (Morphine) 2 - 4 mg IVPUSH Q4H PRN PRN Reason: Pain Ondansetron HCl (Zofran) 4 mg IVPUSH ONETIME ONE Stop: 02/10/17 00:57 Last Admin: 02/10/17 00:52 Dose: 4 mg
[2017-02-10] MEDS ORDERED: fentaNYL 100 MCG/2 ML SDV IVPUSH PRN (10:29)
[2017-02-10] MEDS ORDERED: fentaNYL 250 MCG/5 ML SDV ONE (10:39)
[2017-02-10] MEDS ORDERED: Propofol 200 MG/20 ML SDV ONE (10:39)
[2017-02-10] MEDS ORDERED: Ketorolac 30 MG/ML SDV ONE (10:41)
[2017-02-10] MEDS ORDERED: Lidocaine 2% 5 ML SDV ONE (10:41)
[2017-02-10] MEDS ORDERED: Rocuronium 10 MG/ML 10 ML Syringe ONE (10:41)
[2017-02-10] MEDS ORDERED: Neostigmine Methylsulfate 1 MG/ML 5 ML Syringe ONE (10:41)
[2017-02-10] MEDS ORDERED: Metoclopramide 10 MG/2 ML SDV ONE (10:41)
[2017-02-10] MEDS ORDERED: diphenhydrAMINE 50 MG/ML SDV ONE (10:41)
[2017-02-10] MEDS ORDERED: Ketamine 500 mg/10 ML MDV ONE (11:27)
[2017-02-10] MEDS ORDERED: ePHEDrine 50 MG/ML SDV ONE (11:34)
[2017-02-10] MEDS ORDERED: Ondansetron 4 MG/2 ML SDV ONE (11:47)
[2017-02-10] MEDS ORDERED: Octyl 2-Cyanoacrylate 1 Tube ONE (12:25)
[2017-02-10] MEDS ORDERED: Ketorolac 30 MG/ML SDV IVPUSH ONE (12:31)
[2017-02-10] MEDS ORDERED: Acetaminophen/oxyCODONE 325-5 MG Tab PO PRN (12:31)
[2017-02-10] MEDS ORDERED: Ondansetron 4 MG/2 ML SDV IVPUSH PRN (12:31)
[2017-02-10] MEDS ORDERED: Morphine 4 MG/ML Syringe IVPUSH PRN (12:31)
[2017-02-10] MEDS ORDERED: Morphine 2 MG/ML Syringe IVPUSH PRN (12:31)
--- NOTE | 2017-02-10 12:36 | PCM.OPNOTE ---
- General Post-Op/Procedure Note Date of Surgery/Procedure: 02/10/17 Operative Procedure(s): Dignostic Laparoseopy, R. salpengectomy Pre Op Diagnosis: Rupture R. Tubal . Post-Op Diagnosis: Same Anesthesia Technique: General ET Tube Primary Surgeon: Manfred Brenner Location Worker: Susan Rose EBL in mLs: 800 Complications: None Condition: Good Free Text/Narrative:: Intake & Output 02/09/17 02/10/17 02/10/17 22:59 06:59 14:59 Intake Total 999 Balance 999
--- NOTE | 2017-02-10 13:17 | PCM.POSTAN ---
POST ANESTHESIA ASSESSMENT - MENTAL STATUS Mental Status: Oriented, Somnolent - VITAL SIGNS Pulse Rate: 100 SaO2: 96 Resp Rate: 20 Blood Pressure: 125/62 - RESPIRATORY Respiratory Status: Respiratory Rate WNL, Airway Patent, O2 Saturation Stable - CARDIOVASCULAR CV Status: Pulse Rate WNL, Blood Pressure Stable - GASTROINTESTINAL GI Status: No Symptoms - PAIN Pain Score: 5 - POST OP HYDRATION Hydration Status: Adequate & Stable
[2017-02-10] MEDS: Promethazine 25 MG/ML SDV IM PRN (15:27)
--- NOTE | 2017-02-10 19:07 | OR ---
SURGEON: Manfred Brenner MD DATE OF PROCEDURE: PREOPERATIVE DIAGNOSIS: Rupture right tubal . POSTOPERATIVE DIAGNOSIS: Rupture right tubal . OPERATION PERFORMED: Multiple puncture diagnostic laparoscopy, peritoneal lavage, and right salpingectomy. KEYBOARD TEACHER: Susan Rose CNM. ANESTHESIA: General endotracheal intubation. ANESTHESIOLOGY: Zainab Cooney. ESTIMATED BLOOD LOSS: Including with the blood is found in the peritoneal cavity is about 800 mL. INDICATIONS FOR SURGERY: This patient presented to the emergency room with abdominal pain. She had a positive test. She had an abnormal rise of beta [id number]. Her ultrasound shows no gestational sacs with moderate amount of ascites, strong suspicion of tubal , most likely on the right side because the adnexal mass is in the right side. PROCEDURE IN DETAIL: The patient was brought to the OR, properly identified. After adequate level of general anesthesia, the patient placed in the lithotomy position, prepped and draped in sterile fashion as usual. Straight catheter was used to empty the bladder, and stab wound done beneath, a Hulka manipulator was placed in the uterus for manipulation, and then stab wound done beneath the umbilicus. The Veress needle was placed in the peritoneal cavity and that cavity insufflated with 6 L of carbon dioxide. Then, utilizing the Visiport technique, a 5-mm trocar and with the scope in it is entered centrally. Once we had that done, the patient was placed in steep Trendelenburg and 10/12 trocar placed in the left iliac fossa and 5-mm trocar in the right iliac fossa. We started by suctioning all the blood and blood product from the pelvis and the peritoneum and confirming the fact that the patient have ruptured right tubal . After suctioning all the blood and blood product, thorough peritoneal lavage was performed, and then after that, using the EnSeal Harmonic scapula, right salpingectomy is performed without any problem. The specimen was removed, placed in endobag, removed through the laparoscopic port and then we proceeded after that for inspection and irrigation of the entire operative field. There was no oozing, no bleeding. Satisfied with these findings, the procedure ended. The instrument and hardware were retrieved from the abdomen and the vagina and this laparoscopic incision was closed in layers. The patient tolerated the procedure well, went to recovery room in stable general condition. DAWSON / LAMINE /[id number]
[2017-02-11] MEDS: Ketorolac 30 MG/ML SDV IVPUSH PRN ×2 (04:53→18:39)
[2017-02-11 06:04] LABS: CHLORIDE,CL 109 mmol/L (98-110); SODIUM,NA 140 mmol/L (136-146)
[2017-02-11] MEDS: Lactated Ringers 1,000 ML IV SCH (06:09)
[2017-02-11] MEDS: HYDROmorphone 2 MG/ML SDV IVPUSH PRN (08:54)
--- NOTE | 2017-02-11 09:08 | PCM48HPAN ---
Post Anesthesia Note - EVALUATION WITHIN 48HRS OF ANESTHETIC Vital Signs in Normal Range: Yes Patient Participated in Evaluation: Yes Respiratory Function Stable: Yes Airway Patent: Yes Cardiovascular Function Stable: Yes Hydration Status Stable: Yes Pain Control Satisfactory: Yes Nausea and Vomiting Control Satisfactory: Yes Mental Status Recovered: Yes
--- NOTE | 2017-02-11 10:48 | PCM.SURGPN ---
- General Info Date of Service: 02/11/17 Functional Status: Reports: Pain Controlled - Review of Systems General: Reports: No Symptoms HEENT: Reports: No Symptoms Pulmonary: Reports: No Symptoms Cardiovascular: Reports: No Symptoms Gastrointestinal: Reports: No Symptoms Genitourinary: Reports: No Symptoms Musculoskeletal: Reports: No Symptoms Skin: Reports: No Symptoms Neurological: Reports: No Symptoms Psychiatric: Reports: No Symptoms - Patient Data Vitals - Most Recent: Last Vital Signs Temp 36.9 C 02/11/17 08:00 Pulse 103 H 02/11/17 08:00 Resp 18 02/11/17 08:00 BP 118/64 02/11/17 08:00 Pulse Ox 93 L 02/11/17 08:00 Weight - Most Recent: 86.228 kg I&O - Last 24 Hours: Intake & Output 02/10/17 02/11/17 02/11/17 22:59 06:59 14:59 Intake Total 200 2365 Output Total 300 0 Balance -100 2365 Lab Results Last 24 Hrs: Laboratory Results - last 24 hr 02/10/17 02/11/17 02/11/17 Range/Units 20:12 05:05 05:05 WBC 10.50 (4.0-11.0) K/uL RBC 2.42 L (4.30-5.90) M/uL Hgb 7.3 L 6.9 L (12.0-16.0) g/dL Hct 21.9 L 20.8 L (36.0-46.0) % MCV 86.0 (80.0-98.0) fL MCH 28.5 (27.0-32.0) pg MCHC 33.2 (31.0-37.0) g/dL RDW Std Deviation 40.9 (28.0-62.0) fl RDW Coeff of Neo 13 (11.0-15.0) % Plt Count 187 (150-400) K/uL MPV 9.20 (7.40-12.00) fL Neut % (Auto) 84.5 H (48.0-80.0) % Lymph % (Auto) 11.0 L (16.0-40.0) % Atkinson % (Auto) 4.3 (0.0-15.0) % Eos % (Auto) 0.1 (0.0-7.0) % Baso % (Auto) 0.1 (0.0-1.5) % Neut # (Auto) 8.9 H (1.4-5.7) K/uL Lymph # (Auto) 1.2 (0.6-2.4) K/uL Atkinson # (Auto) 0.5 (0.0-0.8) K/uL Eos # (Auto) 0.0 (0.0-0.7) K/uL Baso # (Auto) 0.0 (0.0-0.1) K/uL Nucleated RBC % 0.0 /100WBC Nucleated RBCs # 0 K/uL Sodium 140 (136-146) mmol/L Potassium 3.3 L (3.5-5.1) mmol/L Chloride 109 (98-110) mmol/L Carbon Dioxide 24 (21-31) mmol/L BUN 10 (6.0-23.0) mg/dL Creatinine 0.8 (0.6-1.5) mg/dL Est Cr Clr Drug Dosing 89.60 mL/min Estimated GFR (MDRD) > 60.0 ml/min Glucose 121 H (60-110) mg/dL Calcium 7.4 L (8.8-10.8) mg/dL Med Orders - Current: Current Medications Hydromorphone HCl (Dilaudid) 2 mg IVPUSH Q4H PRN PRN Reason: Pain Last Admin: 02/11/17 08:54 Dose: 2 mg Lactated Ringer's (Ringers, Lactated) 1,000 mls @ 150 mls/hr IV ASDIRECTED [facility] Last Admin: 02/11/17 06:09 Dose: 150 mls/hr Ketorolac Tromethamine (Toradol) 30 mg IVPUSH Q6H PRN PRN Reason: Pain (severe 7-10) Stop: 02/15/17 12:31 Last Admin: 02/11/17 04:53 Dose: 30 mg Ondansetron HCl (Zofran) 4 mg IVPUSH Q4H PRN PRN Reason: nausea/vomitting Last Admin: 02/10/17 20:03 Dose: 4 mg Ondansetron HCl (Zofran) 4 mg IVPUSH Q6H PRN PRN Reason: Nausea/Vomiting Oxycodone/Acetaminophen (Percocet 325-5 Mg) 1 tab PO Q4H PRN PRN Reason: Pain (moderate 4-6) Last Admin: 02/10/17 15:45 Dose: 1 tab Oxycodone/Acetaminophen (Percocet 325-5 Mg) 2 tab PO Q4H PRN PRN Reason: Pain (moderate 4-6) Promethazine HCl (Phenergan) 25 mg IM Q6H PRN PRN Reason: Nausea/Vomiting Last Admin: 02/10/17 15:27 Dose: 25 mg Discontinued Medications Diphenhydramine HCl (Benadryl) Confirm Administered Dose 50 mg .ROUTE .STK-MED ONE Stop: 02/10/17 10:42 Ephedrine Sulfate (Ephedrine Sulfate) Confirm Administered Dose 50 mg .ROUTE .STK-MED ONE Stop: 02/10/17 11:35 Fentanyl (Sublimaze) 50 mcg IVPUSH Q5M PRN PRN Reason: Pain (severe 7-10) Stop: 02/10/17 14:00 Fentanyl (Sublimaze) Confirm Administered Dose 250 mcg .ROUTE .STK-MED ONE Stop: 02/10/17 10:40 Glycopyrrolate () Confirm Administered Dose 1 mg .ROUTE .STK-MED ONE Stop: 02/10/17 10:42 Sodium Chloride (Normal Saline) 1,000 mls @ 999 mls/hr IV STAT ONE Stop: 02/10/17 01:34 Last Admin: 02/10/17 00:46 Dose: 999 mls/hr Ketamine HCl (Ketalar) Confirm Administered Dose 500 mg .ROUTE .STK-MED ONE Stop: 02/10/17 11:28 Ketorolac Tromethamine (Toradol) Confirm Administered Dose 30 mg .ROUTE .STK- MED ONE Stop: 02/10/17 10:42 Ketorolac Tromethamine (Toradol) 30 mg IVPUSH ONETIME ONE Stop: 02/10/17 12:32 Last Admin: 02/10/17 13:03 Dose: 30 mg Lidocaine (Xylocaine-Mpf 2%) Confirm Administered Dose 5 ml .ROUTE .STK-MED ONE Stop: 02/10/17 10:42 Metoclopramide HCl (Reglan) Confirm Administered Dose 10 mg .ROUTE .STK-MED ONE Stop: 02/10/17 10:42 Morphine Sulfate (Morphine) 2 - 4 mg IVPUSH Q4H PRN PRN Reason: Pain Morphine Sulfate (Morphine) 2 mg IVPUSH Q2H PRN PRN Reason: Pain (severe 7-10) Morphine Sulfate (Morphine) 4 mg IVPUSH Q2H PRN PRN Reason: Pain (severe 7-10) Neostigmine Methylsulfate (Neostigmine) Confirm Administered Dose 5 mg .ROUTE .STK-MED ONE Stop: 02/10/17 10:42 Octyl Cyanoacrylate (Dermabond Advance) Confirm Administered Dose 1 applic .ROUTE .STK-MED ONE Stop: 02/10/17 12:26 Ondansetron HCl (Zofran) 4 mg IVPUSH ONETIME ONE Stop: 02/10/17 00:57 Last Admin: 02/10/17 00:52 Dose: 4 mg Ondansetron HCl (Zofran) Confirm Administered Dose 4 mg .ROUTE .STK-MED ONE Stop: 02/10/17 11:48 Propofol (Diprivan 20 Ml) Confirm Administered Dose 200 mg .ROUTE .STK-MED ONE Stop: 02/10/17 10:40 Rocuronium [place] (Zemuron) Confirm Administered Dose 100 mg .ROUTE .STK-MED ONE Stop: 02/10/17 10:42 - Exam Wound/Incisions: Healing Well General: Alert, Oriented HEENT: Pupils Equal Neck: Supple Lungs: Clear to Auscultation, Normal Respiratory Effort Cardiovascular: Regular Rate, Regular Rhythm GI/Abdominal Exam: Normal Bowel Sounds, Soft, Non-Tender, No Organomegaly, No Distention, No Abnormal Bruit, No Mass, Pelvis Stable Extremities: Normal Inspection, Normal Range of Motion, Non-Tender, No Pedal Edema, Normal Capillary Refill Skin: Warm, Dry, Intact Neurological: No New Focal Deficit Psy/Mental Status: Alert, Normal Affect, Normal Mood - Problem List Review Problem List Initiated/Reviewed/Updated: Yes - My Orders Last 24 Hours: Active Orders 24 hr Category Date Time Status Patient Status [ADT] Routine ADT 02/10/17 12:31 Active Antiembolic Devices [RC] PER UNIT ROUTINE Care 02/10/17 12:32 Active Bradycardia-Neuroaxis [employer] [RC] ROUTINE Care 02/10/17 10:29 Active Hypertension-Neuroaxis [employer] [RC] ROUTINE Care 02/10/17 10:29 Active Hypotension-Neuroaxis [employer] [RC] ROUTINE Care 02/10/17 10:29 Active Notify Provider Vital Signs [RC] ASDIRECTED Care 02/10/17 12:31 Active Oxygen Therapy [RC] ASDIRECTED Care 02/10/17 10:29 Active Oxygen Therapy [RC] ASDIRECTED Care 02/10/17 12:31 Active RT Incentive Spirometry [RC] Q2HWA Care 02/10/17 12:31 Active Up With Assistance [RC] PER UNIT ROUTINE Care 02/10/17 12:31 Active Up ad Rachael [RC] PER UNIT ROUTINE Care 02/10/17 12:31 Active Vital Signs [RC] PER UNIT ROUTINE Care 02/10/17 12:31 Active Regular Diet [DIET] Diet 02/10/17 Dinner Active RED BLOOD CELLS LP [BBK] Routine Lab 02/11/17 09:27 Results Acetaminophen/oxyCODONE [Percocet 325-5 MG] Med 02/10/17 12:31 Active 1 tab PO Q4H PRN Acetaminophen/oxyCODONE [Percocet 325-5 MG] Med 02/10/17 12:31 Active 2 tab PO Q4H PRN Ketorolac [Toradol] Med 02/10/17 12:31 Active 30 mg IVPUSH Q6H PRN Ondansetron [Zofran] Med 02/10/17 12:31 Active 4 mg IVPUSH Q6H PRN Promethazine [Phenergan] Med 02/10/17 12:31 Active 25 mg IM Q6H PRN Peripheral IV Discontinue [OM.PC] Routine Oth 02/10/17 12:31 Ordered Sequential Compression Device [OM.PC] Per Unit Routine Oth 02/10/17 12:31 Ordered Transfuse RBC [Transfuse Red Blood Cells] [COMM] Oth 02/11/17 09:26 Ordered Routine Resuscitation Status Routine Resus Stat 02/10/17 12:31 Ordered Medication Orders Hydromorphone HCl (Dilaudid) 2 mg IVPUSH Q4H PRN PRN Reason: Pain Last Admin: 02/11/17 08:54 Dose: 2 mg Admin: 02/10/17 20:03 Dose: 2 mg Admin: 02/10/17 07:33 Dose: 2 mg Admin: 02/10/17 03:42 Dose: 2 mg Lactated Ringer's (Ringers, Lactated) 1,000 mls @ 150 mls/hr IV ASDIRECTED HOME Last Admin: 02/11/17 06:09 Dose: 150 mls/hr Infusion: 02/11/17 05:49 Dose: 150 mls/hr Admin: 02/10/17 23:08 Dose: 150 mls/hr Infusion: 02/10/17 23:03 Dose: 150 mls/hr Admin: 02/10/17 16:22 Dose: 150 mls/hr Infusion: 02/10/17 16:22 Dose: 150 mls/hr Admin: 02/10/17 10:28 Dose: 150 mls/hr Infusion: 02/10/17 10:05 Dose: 150 mls/hr Admin: 02/10/17 03:24 Dose: 150 mls/hr Ketorolac Tromethamine (Toradol) 30 mg IVPUSH Q6H PRN PRN Reason: Pain (severe 7-10) Stop: 02/15/17 12:31 Last Admin: 02/11/17 04:53 Dose: 30 mg Ondansetron HCl (Zofran) 4 mg IVPUSH Q4H PRN PRN Reason: nausea/vomitting Last Admin: 02/10/17 20:03 Dose: 4 mg Admin: 02/10/17 09:35 Dose: 4 mg Admin: 02/10/17 05:53 Dose: 4 mg Ondansetron HCl (Zofran) 4 mg IVPUSH Q6H PRN PRN Reason: Nausea/Vomiting Oxycodone/Acetaminophen (Percocet 325-5 Mg) 1 tab PO Q4H PRN PRN Reason: Pain (moderate 4-6) Last Admin: 02/10/17 15:45 Dose: 1 tab Oxycodone/Acetaminophen (Percocet 325-5 Mg) 2 tab PO Q4H PRN PRN Reason: Pain (moderate 4-6) Promethazine HCl (Phenergan) 25 mg IM Q6H PRN PRN Reason: Nausea/Vomiting Last Admin: 02/10/17 15:27 Dose: 25 mg - Assessment Assessment (Free Text/Narrative):: Status post diagnostic laparoscopy and right salpingectomy for ruptured tubal and peritoneal lavage - Plan Plan (Free Text/Narrative):: Patient doing well her hemoglobin is down we will type and cross for 2 units and transfuse her today and we will discharge her sometime this afternoon
[2017-02-11] MEDS ORDERED: Acetaminophen 500 MG Tab PO PRN (14:13)
[2017-02-11] MEDS: Ondansetron 4 MG/2 ML SDV IVPUSH PRN (15:19)
[2017-02-11] MEDS: Acetaminophen/oxyCODONE 325-5 MG Tab PO PRN ×2 (16:08→21:53)
[2017-02-11] MEDS ORDERED: Ibuprofen 400 MG Tab PO PRN (19:15)
--- NOTE | 2017-02-11 20:00 | US ---
EXAM DATE: 02/10/17 PATIENT'S AGE: 31 Patient: SARAHI ESTEVEZ Facility: [place], [place] Site . Site : [id number] Study: US OB Pelvis [id number] 1:40:51 AM Ordering Physician: Dorothy Espinoza Final Report: INDICATION: Pelvic pain TECHNIQUE: Ultrasound OB pelvis transvaginal. Real time fragoso scale imaging of the pelvis was performed. COMPARISON: 02/04/2017 FINDINGS: Gestational Sac: No intrauterine gestational sac is identified. The endometrial complex is thickened and heterogeneous. Tiny nabothian cyst is seen in the cervix. Fetus: Not seen. Placenta: The placenta has not yet developed. Pelvis: The cervix is not well demonstrated. The visualized myometrium appears normal. The ovaries are not well visualized. Moderate pelvic ascites noted. IMPRESSION: 1. No intrauterine IUP is identified. By the 2012 Society of Radiologists in Ultrasound consensus panel criteria, this is a of unknown location. Followup beta HCG and ultrasound is recommended to distinguish between a normal early IUP, complete , or ectopic . Ectopic cannot be excluded as the adnexa and ovaries are not well visualized. 2. If a spontaneous is clinically confirmed, followup is also recommended to exclude retained products of conception given the thickened, heterogeneous appearance to the endometrium. 3. Moderate pelvic ascites noted and increased from prior examination. Dictated by Juan Manuel Riley MD @ 02/10/2017 1:58:32 AM Dictated by: Juan Manuel Riley MD @ 02/10/2017 01:59:03 (Electronic Signature) Report Signed by Proxy. DENICE
[2017-02-12] MEDS: Acetaminophen/oxyCODONE 325-5 MG Tab PO PRN ×2 (02:22→10:15)
[2017-02-12] MEDS: Ketorolac 30 MG/ML SDV IVPUSH PRN (08:32)
--- NOTE | 2017-02-12 08:59 | PCM.SURGPN ---
- General Info Date of Service: 02/12/17 POD#: 2 Functional Status: Reports: Pain Controlled - Review of Systems General: Reports: No Symptoms HEENT: Reports: No Symptoms Pulmonary: Reports: No Symptoms Cardiovascular: Reports: No Symptoms Gastrointestinal: Reports: No Symptoms Genitourinary: Reports: No Symptoms Musculoskeletal: Reports: No Symptoms Skin: Reports: No Symptoms Neurological: Reports: No Symptoms Psychiatric: Reports: No Symptoms - Patient Data Vitals - Most Recent: Last Vital Signs Temp 36.7 C 02/12/17 04:00 Pulse 84 02/12/17 04:00 Resp 16 02/12/17 04:00 BP 113/65 02/12/17 04:00 Pulse Ox 93 L 02/12/17 04:00 Weight - Most Recent: 86.228 kg I&O - Last 24 Hours: Intake & Output 02/11/17 02/12/17 02/12/17 22:59 06:59 14:59 Intake Total 753 675 Output Total 1250 750 Balance -497 -75 Lab Results Last 24 Hrs: Laboratory Results - last 24 hr 02/11/17 02/12/17 Range/Units 17:55 05:10 Hgb 9.3 L 8.8 L (12.0-16.0) g/dL Hct 27.3 L 25.9 L (36.0-46.0) % Med Orders - Current: Current Medications Acetaminophen (Tylenol Extra Strength) 500 mg PO Q4H PRN PRN Reason: Headache Last Admin: 02/11/17 14:23 Dose: 500 mg Hydromorphone HCl (Dilaudid) 2 mg IVPUSH Q4H PRN PRN Reason: Pain Last Admin: 02/11/17 08:54 Dose: 2 mg Lactated Ringer's (Ringers, Lactated) 1,000 mls @ 150 mls/hr IV ASDIRECTED HOME Last Admin: 02/11/17 06:09 Dose: 150 mls/hr Ibuprofen (Motrin) 400 mg PO Q4H PRN PRN Reason: Pain Ketorolac Tromethamine (Toradol) 30 mg IVPUSH Q6H PRN PRN Reason: Pain (severe 7-10) Stop: 02/15/17 12:31 Last Admin: 02/12/17 08:32 Dose: 30 mg Ondansetron HCl (Zofran) 4 mg IVPUSH Q4H PRN PRN Reason: nausea/vomitting Last Admin: 02/11/17 15:19 Dose: 4 mg Ondansetron HCl (Zofran) 4 mg IVPUSH Q6H PRN PRN Reason: Nausea/Vomiting Oxycodone/Acetaminophen (Percocet 325-5 Mg) 1 tab PO Q4H PRN PRN Reason: Pain (moderate 4-6) Last Admin: 02/10/17 15:45 Dose: 1 tab Oxycodone/Acetaminophen (Percocet 325-5 Mg) 2 tab PO Q4H PRN PRN Reason: Pain (moderate 4-6) Last Admin: 02/12/17 02:22 Dose: 2 tab Promethazine HCl (Phenergan) 25 mg IM Q6H PRN PRN Reason: Nausea/Vomiting Last Admin: 02/10/17 15:27 Dose: 25 mg Discontinued Medications Diphenhydramine HCl (Benadryl) Confirm Administered Dose 50 mg .ROUTE .STK-MED ONE Stop: 02/10/17 10:42 Ephedrine Sulfate (Ephedrine Sulfate) Confirm Administered Dose 50 mg .ROUTE .STK-MED ONE Stop: 02/10/17 11:35 Fentanyl (Sublimaze) 50 mcg IVPUSH Q5M PRN PRN Reason: Pain (severe 7-10) Stop: 02/10/17 14:00 Fentanyl (Sublimaze) Confirm Administered Dose 250 mcg .ROUTE .STK-MED ONE Stop: 02/10/17 10:40 Glycopyrrolate () Confirm Administered Dose 1 mg .ROUTE .STK-MED ONE Stop: 02/10/17 10:42 Sodium Chloride (Normal Saline) 1,000 mls @ 999 mls/hr IV STAT ONE Stop: 02/10/17 01:34 Last Admin: 02/10/17 00:46 Dose: 999 mls/hr Ketamine HCl (Ketalar) Confirm Administered Dose 500 mg .ROUTE .STK-MED ONE Stop: 02/10/17 11:28 Ketorolac Tromethamine (Toradol) Confirm Administered Dose 30 mg .ROUTE .STK- MED ONE Stop: 02/10/17 10:42 Ketorolac Tromethamine (Toradol) 30 mg IVPUSH ONETIME ONE Stop: 02/10/17 12:32 Last Admin: 02/10/17 13:03 Dose: 30 mg Lidocaine (Xylocaine-Mpf 2%) Confirm Administered Dose 5 ml .ROUTE .STK-MED ONE Stop: 02/10/17 10:42 Metoclopramide HCl (Reglan) Confirm Administered Dose 10 mg .ROUTE .STK-MED ONE Stop: 02/10/17 10:42 Morphine Sulfate (Morphine) 2 - 4 mg IVPUSH Q4H PRN PRN Reason: Pain Morphine Sulfate (Morphine) 2 mg IVPUSH Q2H PRN PRN Reason: Pain (severe 7-10) Morphine Sulfate (Morphine) 4 mg IVPUSH Q2H PRN PRN Reason: Pain (severe 7-10) Neostigmine Methylsulfate (Neostigmine) Confirm Administered Dose 5 mg .ROUTE .STK-MED ONE Stop: 02/10/17 10:42 Octyl Cyanoacrylate (Dermabond Advance) Confirm Administered Dose 1 applic .ROUTE .STK-MED ONE Stop: 02/10/17 12:26 Ondansetron HCl (Zofran) 4 mg IVPUSH ONETIME ONE Stop: 02/10/17 00:57 Last Admin: 02/10/17 00:52 Dose: 4 mg Ondansetron HCl (Zofran) Confirm Administered Dose 4 mg .ROUTE .STK-MED ONE Stop: 02/10/17 11:48 Propofol (Diprivan 20 Ml) Confirm Administered Dose 200 mg .ROUTE .STK-MED ONE Stop: 02/10/17 10:40 Rocuronium [place] (Zemuron) Confirm Administered Dose 100 mg .ROUTE .STK-MED ONE Stop: 02/10/17 10:42 - Exam Wound/Incisions: Healing Well General: Alert, Oriented HEENT: Pupils Equal Neck: Supple Lungs: Clear to Auscultation, Normal Respiratory Effort Cardiovascular: Regular Rate, Regular Rhythm GI/Abdominal Exam: Normal Bowel Sounds, Soft, Non-Tender, No Organomegaly, No Distention, No Abnormal Bruit, No Mass, Pelvis Stable Extremities: Normal Inspection, Normal Range of Motion, Non-Tender, No Pedal Edema, Normal Capillary Refill Skin: Warm, Dry, Intact Neurological: No New Focal Deficit Psy/Mental Status: Alert, Normal Affect, Normal Mood - Problem List Review Problem List Initiated/Reviewed/Updated: Yes - My Orders Last 24 Hours: Active Orders 24 hr Category Date Time Status Acetaminophen [Tylenol Extra Strength] Med 02/11/17 14:13 Active 500 mg PO Q4H PRN Ibuprofen [Motrin] Med 02/11/17 19:15 Active 400 mg PO Q4H PRN Transfuse RBC [Transfuse Red Blood Cells] [COMM] Oth 02/11/17 09:26 Ordered Routine Medication Orders Acetaminophen (Tylenol Extra Strength) 500 mg PO Q4H PRN PRN Reason: Headache Last Admin: 02/11/17 14:23 Dose: 500 mg Hydromorphone HCl (Dilaudid) 2 mg IVPUSH Q4H PRN PRN Reason: Pain Last Admin: 02/11/17 08:54 Dose: 2 mg Admin: 02/10/17 20:03 Dose: 2 mg Admin: 02/10/17 07:33 Dose: 2 mg Admin: 02/10/17 03:42 Dose: 2 mg Lactated Ringer's (Ringers, Lactated) 1,000 mls @ 150 mls/hr IV ASDIRECTED HOME Last Admin: 02/11/17 06:09 Dose: 150 mls/hr Infusion: 02/11/17 05:49 Dose: 150 mls/hr Admin: 02/10/17 23:08 Dose: 150 mls/hr Infusion: 02/10/17 23:03 Dose: 150 mls/hr Admin: 02/10/17 16:22 Dose: 150 mls/hr Infusion: 02/10/17 16:22 Dose: 150 mls/hr Admin: 02/10/17 10:28 Dose: 150 mls/hr Infusion: 02/10/17 10:05 Dose: 150 mls/hr Admin: 02/10/17 03:24 Dose: 150 mls/hr Ibuprofen (Motrin) 400 mg PO Q4H PRN PRN Reason: Pain Ketorolac Tromethamine (Toradol) 30 mg IVPUSH Q6H PRN PRN Reason: Pain (severe 7-10) Stop: 02/15/17 12:31 Last Admin: 02/12/17 08:32 Dose: 30 mg Admin: 02/11/17 18:39 Dose: 30 mg Admin: 02/11/17 04:53 Dose: 30 mg Ondansetron HCl (Zofran) 4 mg IVPUSH Q4H PRN PRN Reason: nausea/vomitting Last Admin: 02/11/17 15:19 Dose: 4 mg Admin: 02/10/17 20:03 Dose: 4 mg Admin: 02/10/17 09:35 Dose: 4 mg Admin: 02/10/17 05:53 Dose: 4 mg Ondansetron HCl (Zofran) 4 mg IVPUSH Q6H PRN PRN Reason: Nausea/Vomiting Oxycodone/Acetaminophen (Percocet 325-5 Mg) 1 tab PO Q4H PRN PRN Reason: Pain (moderate 4-6) Last Admin: 02/10/17 15:45 Dose: 1 tab Oxycodone/Acetaminophen (Percocet 325-5 Mg) 2 tab PO Q4H PRN PRN Reason: Pain (moderate 4-6) Last Admin: 02/12/17 02:22 Dose: 2 tab Admin: 02/11/17 21:53 Dose: 2 tab Admin: 02/11/17 16:08 Dose: 2 tab Promethazine HCl (Phenergan) 25 mg IM Q6H PRN PRN Reason: Nausea/Vomiting Last Admin: 02/10/17 15:27 Dose: 25 mg - Assessment Assessment (Free Text/Narrative):: Status post tubal and she status post diagnostic laparoscopy and right salpingectomy postoperative day #2 patient required blood transfusion she is doing well today - Plan Plan (Free Text/Narrative):: Planning to send her home today prescription for Percocet 7.5/325 for postoperative pain is given postoperative instruction is given the patient is to come to the office for follow-up in one week
[2017-02-12] MEDS: Promethazine 25 MG/ML SDV IM PRN (10:18)
== END 2017-02-12 12:15 | disposition home or self-care (01) ==
LOC: MW.ED 00:29 → MW.MS 02:23
PROVIDERS: ADMIT Obstetrics & Gynecology; ATTEND Obstetrics & Gynecology
DX: O00.101 Right tubal pregnancy without intrauterine pregnancy (principal); F41.9 Anxiety disorder, unspecified; F32.9 Major depressive disorder, single episode, unspecified; Z79.899 Other long term (current) drug therapy; Z90.89 Acquired absence of other organs; Z88.1 Allergy status to other antibiotic agents; Z88.2 Allergy status to sulfonamides; K21.9 Gastro-esophageal reflux disease without esophagitis
CPT/HCPCS: 36415; 59151; 76801; 80048; 80053; 80305; 81001; 84702; 85014; 85018; 85025; 86850; 86900; 86901; 86920; 86921; 86922; 96361; 96374; 99284; A9270; G0378; J1170; J1200; J1885; J2405; J2550; J3010; J7040; J7120; P9016; 00840; 36430; 88305; J2704; J2765

== ENCOUNTER 2017-04-28 06:44 | Emergency (ER) | payer MEDICAID ==
[2017-04-28] MEDS ORDERED: Sodium Chloride 0.9% 1,000 ML IV ONE ×2 (06:53→07:59)
[2017-04-28] MEDS ORDERED: Ondansetron 4 MG/2 ML SDV IVPUSH ONE ×2 (06:53→07:57)
--- NOTE | 2017-04-28 07:01 | EDM.PDOC ---
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 Review of systems: As per history of present illness and below otherwise all systems reviewed and negative. Past medical history: As per history of present illness and as reviewed below otherwise noncontributory. Surgical history: As per history of present illness and as reviewed below otherwise noncontributory. Social history: No reported history of drug or alcohol abuse. Family history: As per history of present illness and as reviewed below otherwise noncontributory. Physical exam: HEENT: Atraumatic, normocephalic, pupils reactive, negative for conjunctival pallor or scleral icterus, mucous membranes dry, throat clear, neck supple, nontender, trachea midline. Lungs: Clear to auscultation, breath sounds equal bilaterally, chest nontender. Heart: S1S2, regular, negative for clicks, rubs, or JVD. Abdomen: Soft, nondistended, nontender. Negative for masses or hepatosplenomegaly. Negative for costovertebral tenderness. Pelvis: Stable nontender. Genitourinary: Deferred. Rectal: Deferred. Extremities: Atraumatic, negative for cords or calf pain. Neurovascular unremarkable. Neuro: Awake, alert, oriented. Cranial nerves II through XII unremarkable. Cerebellum unremarkable. Motor and sensory unremarkable throughout. Exam nonfocal. Diagnostics: CBC CMP lipase UA hCG influenza screen Therapeutics: Saline 1 L bolus Zofran 4 mg IV Impression: #1 vomiting with dehydration Definitive disposition and diagnosis as appropriate pending reevaluation and review of above. - Related Data Allergies Allergy/AdvReac Type Severity Reaction Status Date / Time amoxicillin Allergy Hives Verified 04/28/17 06:53 Sulfa (Sulfonamide Allergy Hives Verified 04/28/17 06:53 Antibiotics) Home Meds: Home Meds FLUoxetine [PROzac] 60 mg PO DAILY 01/13/17 [History] Past Medical History - Past Health History Medical/Surgical History: Denies Medical/Surgical History HEENT History: Reports: None Cardiovascular History: Reports: None Respiratory History: Reports: None Gastrointestinal History: Reports: GERD (Occasional GERD treated with OTC zantac. 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 Neurologist at [facility] in [place] manages and pt reports being told they may be migraine induced. May have had one in past couple of weeks. No active medical treatment.) Psychiatric History: Reports: Anxiety, Depression, Suicidal Ideation (treated in ER in early January 2017), Other (See Below) Other Psychiatric History: PTSD Endocrine/Metabolic History: Reports: None Hematologic History: Reports: None Immunologic History: Reports: None Oncologic (Cancer) History: Reports: None Dermatologic History: Reports: None - Infectious Disease History Infectious Disease History: Reports: Chicken Pox - Past Surgical History Head Surgeries/Procedures: Reports: None HEENT Surgical History: Reports: Tonsillectomy Cardiovascular Surgical History: Reports: None Respiratory Surgical History: Reports: None GI Surgical History: Reports: None Female Surgical History: Reports: None Endocrine Surgical History: Reports: None Neurological Surgical History: Reports: None Musculoskeletal Surgical History: Reports: None Oncologic Surgical History: Reports: None Dermatological Surgical History: Reports: None Social & Family History - Family History Family Medical History: Noncontributory Other Dermatologic Family History: lupus - Tobacco Use Smoking Status *Q: Never Smoker Second Hand Smoke Exposure: No - Caffeine Use Caffeine Use: Reports: Soda - Recreational Drug Use Recreational Drug Use: No ED ROS GENERAL - Review of Systems Review Of Systems: ROS reveals no pertinent complaints other than HPI. ED EXAM, GENERAL - Physical Exam Exam: See Below (See dictation) Course - Vital Signs Last Recorded V/S: Last Vital Signs Temp 36.7 C 04/28/17 08:25 Pulse 84 04/28/17 08:25 Resp 18 04/28/17 08:25 BP 149/108 H 04/28/17 08:25 Pulse Ox 98 04/28/17 08:25 - Orders/Labs/Meds Orders: Active Orders 24 hr Category Date Time Status CULTURE URINE [RM] Stat Lab 04/28/17 08:53 Ordered Sodium Chloride 0.9% [Normal Saline] 1,000 ml Med 04/28/17 07:59 Active IV .Bolus Medication Orders Sodium Chloride (Normal Saline) 1,000 mls @ 999 mls/hr IV .Bolus ONE Stop: 04/28/17 08:59 Last Admin: 04/28/17 08:05 Dose: 999 mls/hr Labs: Laboratory Tests 04/28/17 04/28/17 04/28/17 Range/Units 07:07 07:15 07:15 WBC 8.51 (4.0-11.0) K/uL RBC 4.96 (4.30-5.90) M/uL Hgb 14.2 (12.0-16.0) g/dL Hct 41.4 (36.0-46.0) % MCV 83.5 (80.0-98.0) fL MCH 28.6 (27.0-32.0) pg MCHC 34.3 (31.0-37.0) g/dL RDW Std Deviation 37.1 (28.0-62.0) fl RDW Coeff of Neo 12 (11.0-15.0) % Plt Count 269 (150-400) K/uL MPV 9.50 (7.40-12.00) fL Neut % (Auto) 83.4 H (48.0-80.0) % Lymph % (Auto) 14.0 L (16.0-40.0) % Howell % (Auto) 2.4 (0.0-15.0) % Eos % (Auto) 0.0 (0.0-7.0) % Baso % (Auto) 0.2 (0.0-1.5) % Neut # (Auto) 7.1 H (1.4-5.7) K/uL Lymph # (Auto) 1.2 (0.6-2.4) K/uL Howell # (Auto) 0.2 (0.0-0.8) K/uL Eos # (Auto) 0.0 (0.0-0.7) K/uL Baso # (Auto) 0.0 (0.0-0.1) K/uL Nucleated RBC % 0.0 /100WBC Nucleated RBCs # 0 K/uL Sodium 139 (136-145) mmol/L Potassium 3.9 (3.5-5.1) mmol/L Chloride 104 (98-107) mmol/L Carbon Dioxide 25.1 (21.0-32.0) mmol/L BUN 9 (7.0-18.0) mg/dL Creatinine 0.8 (0.6-1.0) mg/dL Est Cr Clr Drug Dosing 82.06 mL/min Estimated GFR (MDRD) > 60.0 ml/min Glucose 126 H (74-106) mg/dL Calcium 8.6 (8.5-10.1) mg/dL Total Bilirubin 0.7 (0.2-1.0) mg/dL AST 16 (15-37) IU/L ALT 21 (14-63) IU/L Alkaline Phosphatase 71 (46-116) U/L Total Protein 7.7 (6.4-8.2) g/dL Albumin 4.2 (3.4-5.0) g/dL Globulin 3.5 (2.0-3.5) g/dL Albumin/Globulin Ratio 1.2 L (1.3-2.8) Lipase 147 (73-393) U/L HCG, Qual (NEG) Urine Color YELLOW Urine Appearance CLEAR Urine pH 7.5 (5.0-8.0) Ur Specific Melbeta 1.025 (1.001-1.035) Urine Protein 100 (NEGATIVE) mg/dL Urine Glucose (UA) NEGATIVE (NEGATIVE) mg/dL Urine Ketones 15 H (NEGATIVE) mg/dL Urine Occult Blood NEGATIVE (NEGATIVE) Urine Nitrite NEGATIVE (NEGATIVE) Urine Bilirubin NEGATIVE (NEGATIVE) Urine Urobilinogen 0.2 (<2.0) EU/dL Ur Leukocyte Esterase NEGATIVE (NEGATIVE) Urine RBC 0-2 (0-2/HPF) Urine WBC 4-7 (0-5/HPF) Ur Epithelial Cells FEW (NONE-FEW) Urine Bacteria FEW (NEGATIVE) Urine Mucus MODERATE (NONE-MOD) 04/28/17 Range/Units 07:15 WBC (4.0-11.0) K/uL RBC (4.30-5.90) M/uL Hgb (12.0-16.0) g/dL Hct (36.0-46.0) % MCV (80.0-98.0) fL MCH (27.0-32.0) pg MCHC (31.0-37.0) g/dL RDW Std Deviation (28.0-62.0) fl RDW Coeff of Neo (11.0-15.0) % Plt Count (150-400) K/uL MPV (7.40-12.00) fL Neut % (Auto) (48.0-80.0) % Lymph % (Auto) (16.0-40.0) % Howell % (Auto) (0.0-15.0) % Eos % (Auto) (0.0-7.0) % Baso % (Auto) (0.0-1.5) % Neut # (Auto) (1.4-5.7) K/uL Lymph # (Auto) (0.6-2.4) K/uL Howell # (Auto) (0.0-0.8) K/uL Eos # (Auto) (0.0-0.7) K/uL Baso # (Auto) (0.0-0.1) K/uL Nucleated RBC % /100WBC Nucleated RBCs # K/uL Sodium (136-145) mmol/L Potassium (3.5-5.1) mmol/L Chloride (98-107) mmol/L Carbon Dioxide (21.0-32.0) mmol/L BUN (7.0-18.0) mg/dL Creatinine (0.6-1.0) mg/dL Est Cr Clr Drug Dosing mL/min Estimated GFR (MDRD) ml/min Glucose (74-106) mg/dL Calcium (8.5-10.1) mg/dL Total Bilirubin (0.2-1.0) mg/dL AST (15-37) IU/L ALT (14-63) IU/L Alkaline Phosphatase (46-116) U/L Total Protein (6.4-8.2) g/dL Albumin (3.4-5.0) g/dL Globulin (2.0-3.5) g/dL Albumin/Globulin Ratio (1.3-2.8) Lipase (73-393) U/L HCG, Qual NEGATIVE (NEG) Urine Color Urine Appearance Urine pH (5.0-8.0) Ur Specific Melbeta (1.001-1.035) Urine Protein (NEGATIVE) mg/dL Urine Glucose (UA) (NEGATIVE) mg/dL Urine Ketones (NEGATIVE) mg/dL Urine Occult Blood (NEGATIVE) Urine Nitrite (NEGATIVE) Urine Bilirubin (NEGATIVE) Urine Urobilinogen (<2.0) EU/dL Ur Leukocyte Esterase (NEGATIVE) Urine RBC (0-2/HPF) Urine WBC (0-5/HPF) Ur Epithelial Cells (NONE-FEW) Urine Bacteria (NEGATIVE) Urine Mucus (NONE-MOD) Meds: Medications Generic Name Dose Route Start Last Admin Trade Name Freq PRN Reason Stop Dose Admin Sodium Chloride 1,000 mls @ 999 mls/hr 04/28/17 07:59 04/28/17 08:05 Normal Saline IV 04/28/17 08:59 999 mls/hr .Bolus ONE Administration Discontinued Medications Generic Name Dose Route Start Last Admin Trade Name Freq PRN Reason Stop Dose Admin Sodium Chloride 1,000 mls @ 999 mls/hr 04/28/17 06:53 04/28/17 07:23 Normal Saline IV 04/28/17 07:53 999 mls/hr STAT ONE Administration Ondansetron HCl 4 mg 04/28/17 06:53 04/28/17 07:23 Zofran IVPUSH 04/28/17 06:54 4 mg ONETIME ONE Administration Ondansetron HCl 4 mg 04/28/17 07:57 04/28/17 08:05 Zofran IVPUSH 04/28/17 07:58 4 mg ONETIME ONE Administration Departure - Departure Time of Disposition: 08:54 Disposition: Home, Self-Care 01 Condition: Good Clinical Impression: Vomiting, Dehydration, UTI (urinary tract infection) - Discharge Information Referrals: Baldev Cheatham MD [Primary Care Provider] - Forms: ED Department Discharge Additional Instructions: The following information is given to patients seen in the emergency department who are being discharged to home. This information is to outline your options for follow-up care. We provide all patients seen in our emergency department with a follow-up referral. The need for follow-up, as well as the timing and circumstances, are variable depending upon the specifics of your emergency department visit. If you don't have a primary care physician on staff, we will provide you with a referral. We always advise you to contact your personal physician following an emergency department visit to inform them of the circumstance of the visit and for follow-up with them and/or the need for any referrals to a consulting specialist. The emergency department will also refer you to a specialist when appropriate. This referral assures that you have the opportunity for followup care with a specialist. All of these measure are taken in an effort to provide you with optimal care, which includes your followup. Under all circumstances we always encourage you to contact your private physician who remains a resource for coordinating your care. When calling for followup care, please make the office aware that this follow-up is from your recent emergency room visit. If for any reason you are refused follow-up, please contact the [facility] emergency department at and asked to speak to the emergency department charge nurse. Cipro as prescribed push fluids clear liquids 24 hours no dairy 72 hours follow-up private medical doctor as discussed and return as needed as discussed - My Orders Last 24 Hours: My Active Orders 04/28/17 07:59 Sodium Chloride 0.9% [Normal Saline] 1,000 ml IV .Bolus 04/28/17 08:53 CULTURE URINE [RM] Stat - Assessment/Plan Last 24 Hours: My Active Orders 04/28/17 07:59 Sodium Chloride 0.9% [Normal Saline] 1,000 ml IV .Bolus 04/28/17 08:53 CULTURE URINE [RM] Stat
[2017-04-28 07:45] LABS: CHLORIDE,CL 104 mmol/L (98-107); SODIUM,NA 139 mmol/L (136-145)
== END 2017-04-28 09:15 | disposition home or self-care (01) ==
LOC: MW.ED 06:44
DX: E86.0 Dehydration (principal); N39.0 Urinary tract infection, site not specified; R11.2 Nausea with vomiting, unspecified; Z88.1 Allergy status to other antibiotic agents; Z88.2 Allergy status to sulfonamides; Z79.899 Other long term (current) drug therapy
CPT/HCPCS: 36415; 80053; 81001; 83690; 84703; 85025; 87086; 87804; 96361; 96374; 96376; 99283; J2405; J7040